=== PATIENT | female | born 1970 | race Two or more races ===

== ENCOUNTER 2020-08-21 05:30 | Emergency (ER) | payer MEDICAID ==
[~2020-08-21] VITALS: Ht 165.1 cm; Wt 68.0 kg
[2020-08-21 07:05] LABS: BASOPHILS % 0.4 % (0.0-2.0); EOSINOPHILS % 0.5 % (0.0-5.0); HEMATOCRIT. 40.7 % (36.0-48.0); LYMPHOCYTES % 10.8 % (20.0-50.0); MEAN CORPUSCULAR VOLUME 87.6 fL (81.0-99.0); MEAN PLATELET VOLUME 7.1 fl (7.4-10.4); MONOCYTES % 8.5 % (2.0-8.0); NEUTROPHILS % 79.8 % (40.0-76.0); PLATELET 270 x1000/uL (130-400); RED BLOOD CELL COUNT 4.65 mill/uL (4.2-5.4); RED CELL DISTRIBUTION WIDTH 14.1 % (11.6-14.6)
[2020-08-21 07:12] LABS: CLARITY URINE CLOUDY (CLEAR); COLOR URINE YELLOW (YELLOW); KETONES URINE TRACE (NEGATIVE); LEUKOCYTE ESTERASE URINE 1+ (NEGATIVE); NITRITE URINE NEGATIVE (NEGATIVE); OCCULT BLOOD URINE NEGATIVE (NEGATIVE); PH URINE 8.5 (4.5-8.0); PROTEIN URINE 1+ (NEGATIVE); SPECIFIC GRAVITY URINE 1.021 (1.005-1.030)
[2020-08-21 07:17] LABS: PROTHROMBIN TIME 10.3 sec (9.6-11.0)
[2020-08-21 07:20] LABS: CHLORIDE 107 mEq/L (98-107)
[2020-08-21 08:00] VITALS: BP 102/55
[2020-08-21] MEDS ORDERED: TOPUD MT (08:36)
[2020-08-21] MEDS ORDERED: NITR100C MT (08:36)
== END 2020-08-21 08:58 | disposition home or self-care (01) ==
LOC: ER 05:30
DX: N39.0 Urinary tract infection, site not specified (principal); R10.13 Epigastric pain; F31.9 Bipolar disorder, unspecified
CPT/HCPCS: 36415; 80053; 81003; 81025; 83690; 85025; 85610; 93005; 99284; Z7610

== ENCOUNTER 2021-05-21 13:13 | Emergency (ER) | payer MEDICAID ==
[~2021-05-21] VITALS: Ht 165.1 cm; Wt 54.0 kg
[~2021-05-21 13:13] MED LIST: NITR100C MT; TOPUD MT
[2021-05-21 16:00] VITALS: BP 120/56
== END 2021-05-21 16:34 | disposition home or self-care (01) ==
LOC: ER 13:13
DX: Z48.02 Encounter for removal of sutures (principal)
CPT/HCPCS: 99281

== ENCOUNTER 2021-08-09 06:00 | Emergency (ER) | payer MEDICAID ==
[~2021-08-09] VITALS: Ht 165.1 cm; Wt 54.0 kg
[2021-08-09 07:03] LABS: BASOPHILS % 0.5 % (0.0-2.0); EOSINOPHILS % 0.2 % (0.0-5.0); HEMATOCRIT. 38.7 % (36.0-48.0); HEMOGLOBIN. 13.2 g/dL (12.0-16.0); LYMPHOCYTES % 19.2 % (20.0-50.0); MEAN CORPUSCULAR HEMOGLOBIN 30.2 pg (28.0-32.0); MEAN CORPUSCULAR VOLUME 88.6 fL (81.0-99.0); MEAN PLATELET VOLUME 6.6 fl (7.4-10.4); MONOCYTES % 9.2 % (2.0-8.0); NEUTROPHILS % 70.9 % (40.0-76.0); PLATELET 333 x1000/uL (130-400); RED BLOOD CELL COUNT 4.37 mill/uL (4.2-5.4); RED CELL DISTRIBUTION WIDTH 14.1 % (11.6-14.6)
[2021-08-09 07:10] LABS: CHLORIDE 103 mEq/L (98-107)
[2021-08-09 07:20] LABS: CLARITY URINE CLOUDY (CLEAR); COLOR URINE DARK YELLOW (YELLOW); KETONES URINE TRACE (NEGATIVE); LEUKOCYTE ESTERASE URINE TRACE (NEGATIVE); NITRITE URINE NEGATIVE (NEGATIVE); OCCULT BLOOD URINE NEGATIVE (NEGATIVE); PH URINE 6.5 (4.5-8.0); PROTEIN URINE 1+ (NEGATIVE); SPECIFIC GRAVITY URINE 1.022 (1.005-1.030); UROBILINOGEN URINE 0.2 E.U./dL (0.2-1.0)
[2021-08-09 07:21] LABS: B-HCG QUANTITATIVE < 1 mIU/mL (<3)
[2021-08-09] MEDS ORDERED: POTASSIUM CHLORIDE 20MEQ TABLET SR PO ONE (08:30)
[2021-08-09] MEDS ORDERED: IOHEXOL-300 100 ML BOTTLE ONE (15:15)
[2021-08-09 16:07] VITALS: BP 112/61
== END 2021-08-09 16:12 | disposition home or self-care (01) ==
LOC: ER 06:00 → CANBEDREQ 14:05 → ER 16:12
DX: R10.9 Unspecified abdominal pain (principal); E03.9 Hypothyroidism, unspecified; F20.9 Schizophrenia, unspecified; F31.9 Bipolar disorder, unspecified
CPT/HCPCS: 36415; 74177; 76830; 76856; 80053; 81003; 83690; 84702; 85025; 87591; 99285; Q9967

== ENCOUNTER 2021-12-13 16:36 | Emergency (ER) | payer MEDICAID ==
[~2021-12-13] VITALS: Ht 165.1 cm; Wt 60.0 kg
[2021-12-13 17:38] LABS: BASOPHILS % 0.8 % (0.0-2.0); EOSINOPHILS % 0.8 % (0.0-5.0); HEMOGLOBIN. 13.3 g/dL (12.0-16.0); LYMPHOCYTES % 40.4 % (20.0-50.0); MEAN CORPUSCULAR HEMOGLOBIN 30.6 pg (28.0-32.0); MEAN CORPUSCULAR VOLUME 89.9 fL (81.0-99.0); MEAN PLATELET VOLUME 6.9 fl (7.4-10.4); MONOCYTES % 9.4 % (2.0-8.0); NEUTROPHILS % 48.6 % (40.0-76.0); PLATELET 265 x1000/uL (130-400); RED BLOOD CELL COUNT 4.33 mill/uL (4.2-5.4); RED CELL DISTRIBUTION WIDTH 13.8 % (11.6-14.6)
[2021-12-13 17:48] LABS: CHLORIDE 106 mEq/L (98-107)
[2021-12-13 17:59] LABS: CLARITY URINE CLEAR (CLEAR); COLOR URINE YELLOW (YELLOW); KETONES URINE NEGATIVE (NEGATIVE); LEUKOCYTE ESTERASE URINE NEGATIVE (NEGATIVE); NITRITE URINE NEGATIVE (NEGATIVE); OCCULT BLOOD URINE NEGATIVE (NEGATIVE); PROTEIN URINE NEGATIVE (NEGATIVE); SPECIFIC GRAVITY URINE 1.006 (1.005-1.030); UROBILINOGEN URINE 0.2 E.U./dL (0.2-1.0)
[2021-12-13] MEDS ORDERED: ONDANSETRON HCL 4MG/2ML INJ IV STA (18:41)
[2021-12-13] MEDS ORDERED: SODIUM CHLORIDE 0.9% 1,000 ML IV ONE (18:45)
[2021-12-13] MEDS ORDERED: NITROGLYCERIN 0.4MG TABLET SL SL PRN (18:45)
[2021-12-13] MEDS ORDERED: ASPIRIN 81MG TABLET PO ONE (18:45)
[2021-12-13 19:51] VITALS: BP 110/73
== END 2021-12-13 20:35 | disposition left against medical advice (07) ==
LOC: ER 16:36
DX: R07.9 Chest pain, unspecified (principal); F31.9 Bipolar disorder, unspecified; E03.9 Hypothyroidism, unspecified; F20.9 Schizophrenia, unspecified
CPT/HCPCS: 36415; 71045; 80053; 81003; 83690; 83880; 84443; 84484; 85025; 85379; 93005; 96360; 99285; J2405; J7030

== ENCOUNTER 2022-04-20 10:04 | Inpatient (IN) | payer MEDICAID, OTHER ==
[~2022-04-20] VITALS: Ht 165.1 cm; Wt 78.9 kg
[2022-04-20] MEDS ORDERED: IBUPROFEN 600MG TABLET PO STA (10:41)
[2022-04-20] MEDS ORDERED: SODIUM CHLORIDE 0.9% 1,000 ML IV ONE ×2 (10:45→14:15)
[2022-04-20 10:59] LABS: HEMOGLOBIN. 12.3 g/dL (12.0-16.0); MEAN CORPUSCULAR HEMOGLOBIN 31.7 pg (28.0-32.0); MEAN CORPUSCULAR VOLUME 92.7 fL (81.0-99.0); MEAN PLATELET VOLUME 6.8 fl (7.4-10.4); PLATELET 212 x1000/uL (130-400); RED BLOOD CELL COUNT 3.88 mill/uL (4.2-5.4); RED CELL DISTRIBUTION WIDTH 13.9 % (11.6-14.6)
[2022-04-20 11:05] LABS: CHLORIDE 102 mEq/L (98-107)
[2022-04-20 11:11] LABS: PROTHROMBIN TIME 10.6 sec (9.6-11.0)
[2022-04-20] MEDS ORDERED: POTASSIUM CHLORIDE 20MEQ TABLET SR PO ONE (11:30)
[2022-04-20] MEDS ORDERED: LEVOFLOXACIN 750MG PREMIX 150 ML IV ONE (11:30)
[2022-04-20 11:45] LABS: PLATELET ESTIMATE NORMAL
[2022-04-20 13:08] LABS: CLARITY URINE CLOUDY (CLEAR); COLOR URINE DARK YELLOW (YELLOW); KETONES URINE TRACE (NEGATIVE); LEUKOCYTE ESTERASE URINE 2+ (NEGATIVE); NITRITE URINE NEGATIVE (NEGATIVE); OCCULT BLOOD URINE 2+ (NEGATIVE); PH URINE 5.5 (4.5-8.0); PROTEIN URINE 2+ (NEGATIVE)
[2022-04-20] MEDS ORDERED: KCL 10MEQ/50ML PREMIX 50 ML IV ONE (14:30)
[2022-04-20] MEDS ORDERED: DIPHENHYDRAMINE 50MG CAPSULE PO NR (17:45)
[2022-04-20 17:50] VITALS: BP 101/66
[2022-04-20] MEDS ORDERED: CEFTRIAXONE 1 G PREMIX 50 ML IV SCH (18:00)
[2022-04-20] MEDS: SODIUM CHLORIDE 0.9% 1,000 ML IV SCH (18:20)
[2022-04-20] MEDS ORDERED: LEVO25TA7 MT (18:38)
[2022-04-20] MEDS ORDERED: CLON0.5T PO (18:38)
[2022-04-20] MEDS ORDERED: OXCA600T5 PO (18:38)
[2022-04-20] MEDS ORDERED: DES150 MT (18:38)
[2022-04-20] MEDS ORDERED: ZIPR80CA2 PO (18:38)
[2022-04-20 20:07] LABS: HEMATOCRIT. 31.8 % (36.0-48.0); MEAN CORPUSCULAR HEMOGLOBIN 32.2 pg (28.0-32.0); MEAN CORPUSCULAR VOLUME 93.2 fL (81.0-99.0); MEAN PLATELET VOLUME 6.7 fl (7.4-10.4); PLATELET 170 x1000/uL (130-400); RED BLOOD CELL COUNT 3.41 mill/uL (4.2-5.4); RED CELL DISTRIBUTION WIDTH 13.9 % (11.6-14.6)
[2022-04-20] MEDS: CEFTRIAXONE 1,000 MG in DEXTROSE 5% WATER 50 ML IV SCH (20:29)
[2022-04-20] MEDS: ACETAMINOPHEN 325MG TABLET PO PRN (20:35)
[2022-04-20 20:39] LABS: CHLORIDE 111 mEq/L (98-107)
[2022-04-20 21:59] LABS: PLATELET ESTIMATE NORMAL
[2022-04-21] MEDS: SODIUM CHLORIDE 0.9% 1,000 ML IV SCH ×2 (04:53→10:22)
[2022-04-21 05:37] VITALS: BP 116/60
[2022-04-21] MEDS: ACETAMINOPHEN 325MG TABLET PO PRN (06:29)
[2022-04-21 08:00] VITALS: BP 97/60
[2022-04-21] MEDS ORDERED: *PATIENT'S OWN MEDICATION STORAGE XX SCH (08:30)
[2022-04-21] MEDS: IBUPROFEN 600MG TABLET PO PRN ×2 (08:36→23:52)
[2022-04-21] MEDS: HEPARIN 5000 UNITS/ML VIAL SUBCUT SCH ×2 (08:36→18:11)
[2022-04-21] MEDS ORDERED: CEFTRIAXONE 1 G PREMIX 50 ML IV SCH (09:00)
[2022-04-21 12:00] VITALS: BP 86/54
[2022-04-21 18:13] LABS: BASOPHILS % 0.1 % (0.0-2.0); EOSINOPHILS % 0.3 % (0.0-5.0); HEMOGLOBIN. 11.6 g/dL (12.0-16.0); MEAN CORPUSCULAR HEMOGLOBIN 32.1 pg (28.0-32.0); MEAN CORPUSCULAR VOLUME 93.8 fL (81.0-99.0); MEAN PLATELET VOLUME 6.9 fl (7.4-10.4); NEUTROPHILS % 78.6 % (40.0-76.0); PLATELET 197 x1000/uL (130-400); RED BLOOD CELL COUNT 3.63 mill/uL (4.2-5.4); RED CELL DISTRIBUTION WIDTH 13.9 % (11.6-14.6)
[2022-04-21 18:25] LABS: CHLORIDE 108 mEq/L (98-107)
[2022-04-21 20:00] VITALS: BP 94/54
[2022-04-21] MEDS: CEFTRIAXONE 1,000 MG in DEXTROSE 5% WATER 50 ML IV SCH (21:20)
[2022-04-21] MEDS ORDERED: KCL 10MEQ/50ML PREMIX 50 ML IV NR (22:30)
[2022-04-21 22:40] VITALS: BP 94/54
[2022-04-21 23:35] VITALS: BP 110/55
[2022-04-21] MEDS ORDERED: POTASSIUM CHLORIDE 20MEQ TABLET SR PO NR (23:45)
[2022-04-21] MEDS ORDERED: TRAZODONE HCL 50MG TABLET PO SCH (23:59)
[2022-04-22] MEDS: SODIUM CHLORIDE 0.9% 1,000 ML IV SCH (00:10)
[2022-04-22 04:00] VITALS: BP 110/56
[2022-04-22 08:00] VITALS: BP 102/60
[2022-04-22] MEDS: HEPARIN 5000 UNITS/ML VIAL SUBCUT SCH (10:08)
[2022-04-22 12:00] VITALS: BP 130/80
[2022-04-22] MEDS ORDERED: LEVO500T90 MT (14:10)
[2022-04-22 15:41] LABS: BASOPHILS % 0.2 % (0.0-2.0); EOSINOPHILS % 0.7 % (0.0-5.0); HEMATOCRIT. 31.6 % (36.0-48.0); HEMOGLOBIN. 10.8 g/dL (12.0-16.0); LYMPHOCYTES % 10.9 % (20.0-50.0); MEAN CORPUSCULAR HEMOGLOBIN 31.6 pg (28.0-32.0); MEAN CORPUSCULAR VOLUME 92.2 fL (81.0-99.0); MEAN PLATELET VOLUME 7.4 fl (7.4-10.4); MONOCYTES % 7.2 % (2.0-8.0); PLATELET 227 x1000/uL (130-400); RED BLOOD CELL COUNT 3.42 mill/uL (4.2-5.4); RED CELL DISTRIBUTION WIDTH 14.1 % (11.6-14.6)
[2022-04-22 15:58] LABS: CHLORIDE 110 mEq/L (98-107)
[2022-04-22 16:00] VITALS: BP 128/80
[2022-04-22 16:43] VITALS: BP 128/77
[2022-04-22] MEDS ORDERED: HEPARIN 5000 UNITS/ML VIAL SUBCUT SCH (21:00)
== END 2022-04-22 18:30 | disposition home or self-care (01) | DRG 872 ==
LOC: ER 10:23 → 8WST 14:33 → EDBEDREQ 14:35 → ENRESERV 17:06
PROVIDERS: ADMIT Internal Medicine Pulmonary Disease; ATTEND Internal Medicine Pulmonary Disease
DX: A41.9 Sepsis, unspecified organism (principal); N39.0 Urinary tract infection, site not specified; E03.9 Hypothyroidism, unspecified; G90.8 Other disorders of autonomic nervous system; Z20.822 Contact with and (suspected) exposure to COVID-19; F20.9 Schizophrenia, unspecified; E87.6 Hypokalemia
CPT/HCPCS: 36415; 71045; 80048; 80053; 81003; 83605; 84484; 85025; 86850; 86900; 87077; 87186; 87426; 99291; C9803; J0696; J1644; J1956; J3480; J7030; J7060

== ENCOUNTER 2024-10-08 13:47 | Emergency (ER) | payer MEDICARE, OTHER ==
[~2024-10-08] VITALS: Ht 167.6 cm; Wt 59.0 kg
[~2024-10-08 13:47] MED LIST changes: +CLON0.5T2 PO; +DES150 MT; +LEVO-65 MT; +LEVO25TA7 MT; +OXCA600T5 PO; +ZIPR80CA2 PO
[2024-10-08 13:50] VITALS: O2SAT 96
[2024-10-08 14:19] LABS: BASOPHILS % 0.3 % (0.0-2.0); EOSINOPHILS % 0.1 % (0.0-5.0); HEMATOCRIT. 38.6 % (36.0-48.0); LYMPHOCYTES % 14.6 % (20.0-50.0); MEAN CORPUSCULAR HEMOGLOBIN 30.6 pg (28.0-32.0); MEAN CORPUSCULAR HGB CONC 33.6 g/dL (31.0-37.0); MEAN CORPUSCULAR VOLUME 91.1 fL (81.0-99.0); MEAN PLATELET VOLUME 7.1 fl (7.4-10.4); MONOCYTES % 8.6 % (2.0-8.0); NEUTROPHILS % 76.4 % (40.0-76.0); PLATELET 270 x1000/uL (130-400); RED BLOOD CELL COUNT 4.23 mill/uL (4.2-5.4); RED CELL DISTRIBUTION WIDTH 14.6 % (11.6-14.6); WHITE BLOOD COUNT 10.3 x1000/uL (4.5-11.0)
[2024-10-08 14:28] LABS: CARBON DIOXIDE 19 mEq/L (21-32); CHLORIDE 102 mEq/L (98-107); POTASSIUM 3.5 mEq/L (3.5-5.1); SODIUM 136 mEq/L (136-145)
[2024-10-08 14:34] LABS: CREATININE 0.8 mg/dL (0.6-1.0); ETHANOL BLOOD 35 mg/dL (<10); GLUCOSE 79 mg/dL (70-105); UREA NITROGEN BLOOD 10 mg/dL (9-23)
[2024-10-08 14:36] LABS: ACETAMINOPHEN < 2 ug/mL (10-30)
[2024-10-09 00:48] LABS: CLARITY URINE CLEAR (CLEAR); COLOR URINE YELLOW (YELLOW); GLUCOSE URINE NEGATIVE (NEGATIVE); KETONES URINE 3+ (NEGATIVE); LEUKOCYTE ESTERASE URINE NEGATIVE (NEGATIVE); NITRITE URINE NEGATIVE (NEGATIVE); OCCULT BLOOD URINE 1+ (NEGATIVE); PROTEIN URINE NEGATIVE (NEGATIVE); SPECIFIC GRAVITY URINE 1.012 (1.005-1.030); UROBILINOGEN URINE 0.2 E.U./dL (0.2-1.0)
[2024-10-09 00:56] LABS: *AMPHETAMINES SCREEN URINE NEGATIVE (NEGATIVE)
[2024-10-09 00:57] LABS: *BARBITURATES SCREEN URINE NEGATIVE (NEGATIVE); *BENZODIAZEPINES SCREEN URINE NEGATIVE (NEGATIVE); *COCAINE SCREEN URINE NEGATIVE (NEGATIVE); CANNABINOID URINE SCREEN NEGATIVE (NEGATIVE); ECSTASY MDMA SCREEN URINE CONF.TEST INDICATED (NEGATIVE); METHADONE URINE SCREEN NEGATIVE (NEGATIVE); OPIATES URINE SCREEN NEGATIVE (NEGATIVE); PHENCYCLIDINE URINE SCREEN NEGATIVE (NEGATIVE)
[2024-10-09 04:41] LABS: SQUAMOUS EPITHELIAL CELL URINE FEW /lpf (RARE/1+)
[2024-10-09 04:42] LABS: RBC URINE 0-2 /hpf (0-2); WBC URINE 0-2 /hpf (0-2)
[2024-10-09 04:43] LABS: BACTERIA URINE NONE SEEN
[2024-10-11] MEDS: LORAZEPAM 1MG TABLET PO ONE (00:53)
[2024-10-11] MEDS: ZIPRASIDONE HCL 40MG CAPSULE PO SCH (10:30)
[2024-10-12] MEDS ORDERED: DES150 MT (09:57)
[2024-10-12 10:00] VITALS: BP 112/70; PULSE 88; RESP 16; TEMP 37.7; O2SAT 96
== END 2024-10-12 10:53 | disposition home or self-care (01) ==
LOC: ER 14:24
DX: R45.851 Suicidal ideations (principal); F31.9 Bipolar disorder, unspecified; Z79.899 Other long term (current) drug therapy; Z86.59 Personal history of other mental and behavioral disorders; Z20.822 Contact with and (suspected) exposure to COVID-19; Z86.39 Personal history of other endocrine, nutritional and metabolic disease
CPT/HCPCS: 36415; 80048; 80305; 80307; 80320; 80329; 81003; 85025; 87426; 93005; 99285; G0480

== ENCOUNTER 2025-03-07 17:15 | Emergency (ER) | payer MEDICARE, OTHER ==
[~2025-03-07] VITALS: Ht 162.6 cm; Wt 77.0 kg
[~2025-03-07 17:15] MED LIST changes: -LEVO-65 MT; +LEVO-65 PO
[2025-03-07 17:19] VITALS: O2SAT 96
[2025-03-07] MEDS: IBUPROFEN 600MG TABLET PO ONE (18:27)
[2025-03-07] MEDS: TETANUS, DIPHTHERIA, PERTUSSIS VAC/PF 0.5ML (>10YR OLD) IM ONE (18:28)
[2025-03-07] MEDS: LIDOCAINE HCL 1% 20ML VIAL INFIL ONE (18:28)
[2025-03-07] MEDS ORDERED: IBUP-2029 MT (19:17)
[2025-03-07] MEDS ORDERED: BO1 TP (19:17)
[2025-03-07 19:56] VITALS: BP 153/102; PULSE 86; RESP 17; TEMP 36.7; O2SAT 98
== END 2025-03-07 19:59 | disposition home or self-care (01) ==
LOC: ER 17:22
DX: S61.211A Laceration without foreign body of left index finger without damage to nail, initial encounter (principal); E03.9 Hypothyroidism, unspecified; F31.9 Bipolar disorder, unspecified; Z79.899 Other long term (current) drug therapy; Z23 Encounter for immunization; W26.0XXA Contact with knife, initial encounter; Y93.89 Activity, other specified; Y92.89 Other specified places as the place of occurrence of the external cause; Y99.8 Other external cause status
CPT/HCPCS: 99283; 90715; 12001; 90471; J2003